=== PATIENT | female | born 1980 | race Caucasian/White ===

== ENCOUNTER 2021-04-08 10:32 | Day surgery (SDC) | payer OTHER, SELFPAY ==
[~2021-04-08] VITALS: Ht 167.6 cm; Wt 65.3 kg
[2021-04-08] MEDS ORDERED: LIDOCAINE 2% 100 MG/5 ML UJET TP ONE ×2 (12:54→13:10)
[2021-04-08] MEDS ORDERED: fentaNYL citrate 0.05 MG/ML VIAL ONE (12:54)
[2021-04-08] MEDS ORDERED: fentaNYL citrate 0.05 MG/ML VIAL IVP ONE (13:10)
== END 2021-04-08 13:40 | disposition home or self-care (01) ==
LOC: MOR 10:32 → MMU 11:36 → MOR 13:40
PROVIDERS: ATTEND Internal Medicine Gastroenterology
DX: K51.00 Ulcerative (chronic) pancolitis without complications (principal); Z79.4 Long term (current) use of insulin; Z79.899 Other long term (current) drug therapy; Z20.822 Contact with and (suspected) exposure to COVID-19
CPT/HCPCS: 45330; 81025; J3010; U0003